=== PATIENT | female | born 1960 ===

== ENCOUNTER 2017-12-21 15:21 | Emergency (ER) | payer SELFPAY ==
[2017-12-21] MEDS ORDERED: Lidocaine 5% Patch TD STA (16:36)
[2017-12-21] MEDS ORDERED: Lidocaine 5% Patch TD ONE (16:49)
[2017-12-21 17:32] LABS: SQUAMOUS EPITHIAL 1 /hpf (0-5); URINE BACTERIA RARE (<OCC); URINE BILIRUBIN NEGATIVE (NEGATIVE); URINE BLOOD NEGATIVE (NEGATIVE); URINE CLARITY CLEAR (Clear); URINE COLOR STRAW (YELLOW); URINE GLUCOSE (UA) NEG (Normal); URINE LEUKOCYTE ESTERASE NEG Leu/uL (Negative); URINE PROTEIN NEGATIVE (NEGATIVE); URINE UROBILINOGEN 0.2-1.0 mg/dL (0.2-1.0)
--- NOTE | 2017-12-21 17:57 | ED PDOC ---
HPI: Back Time Seen by Provider: 12/21/17 15:58 Chief Complaint (Nursing): Back Pain Chief Complaint (Provider): Back pain History Per: Personnel Records Clerk ([phone] ) History/Exam Limitations: no limitations Onset/Duration Of Symptoms: Days (x3) Additional Complaint(s): Patient is a 57 y/o female with no significant past medical history who presents to the ED complaining of atraumatic right sided lower back pain, onset x3 days ago. Patient reports that the pain radiates down her right buttock but denies any radiation into her legs. Patient states that pain worsens when she walks; she is currently visiting from [facility] and states she has been walking a lot more than normally accustomed to. Patient has been taking OTC pain medications and using heat pack for pain management without relief. She denies trauma, incontinence, dysuria, hematuria, abdominal pain, calf pain, chest pain , shortness of breath or history of kidney stones. Past Medical History Reviewed: Historical Data, Nursing Documentation, Vital Signs Vital Signs: Last Vital Signs Temp 97.6 F 12/21/17 15:47 Pulse 71 12/21/17 15:47 Resp 20 12/21/17 15:47 BP 125/77 12/21/17 15:47 Pulse Ox 99 12/21/17 15:47 - Medical History PMH: No Chronic Diseases - Surgical History Surgical History: No Surg Hx - Family History Family History: States: Unknown Family Hx - Home Medications Home Medications: Ambulatory Orders Medication Instructions Recorded Cyclobenzaprine [Cyclobenzaprine 10 mg PO Q8 PRN #10 tab 12/21/17 HCl] Lidocaine 5% [Lidoderm] 1 ea TD DAILY PRN #10 patch 12/21/17 Naproxen [Naprosyn] 500 mg PO BID PRN #10 tab 12/21/17 - Allergies Allergies/Adverse Reactions: Allergies Allergy/AdvReac Type Severity Reaction Status Date / Time vitamin b12 Allergy RASH Uncoded 12/21/17 15:47 Review of Systems ROS Statement: Except As Marked, All Systems Reviewed And Found Negative Constitutional: Negative for: Fever Cardiovascular: Negative for: Chest Pain Respiratory: Negative for: Shortness of Breath Gastrointestinal: Negative for: Abdominal Pain Genitourinary Female: Negative for: Dysuria, Incontinence, Hematuria Musculoskeletal: Positive for: Back Pain (right sided lower) Physical Exam - Reviewed Nursing Documentation Reviewed: Yes Vital Signs Reviewed: Yes - Physical Exam Appears: Positive for: Non-toxic, No Acute Distress Head Exam: Positive for: ATRAUMATIC, NORMOCEPHALIC Skin: Positive for: Normal Color, Warm, Dry Eye Exam: Positive for: EOMI, Normal appearance, PERRL Cardiovascular/Chest: Positive for: Regular Rate, Rhythm. Negative for: Murmur Respiratory: Positive for: Normal Breath Sounds. Negative for: Respiratory Distress Gastrointestinal/Abdominal: Positive for: Normal Exam. Negative for: Tenderness Back: Positive for: Normal Inspection, Muscle Spasm (right sided paralumbar tenderness with muscle spasm), Other (positive straigh leg raise test at 30 degrees). Negative for: L CVA Tenderness, R CVA Tenderness, Vertebral Tenderness Neurologic/Psych: Positive for: Alert, Oriented (x3), Gait (steady unassisted). Negative for: Motor/Sensory Deficits - ECG O2 Sat by Pulse Oximetry: 99 (RA) Pulse Ox Interpretation: Normal Medical Decision Making Medical Decision Making: Time: 16:35 Initial Impression: Right sided lower back pain Initial Plan: --Flexeril 10 mg PO --Lidocaine 5% TD --Toradol 30 mg IM --RAD - LS spine AP/LAT --Urinalysis Time: 17:00 --Lumbar spine x-ray reveals no bony abnormalities Time: 17:52 --On reevaluation patient reports complete pain relief Scribe Attestation: Documented by Braulio Blake, acting as a scribe for Pk Reynolds PA-C Provider Scribe Attestation: All medical record entries made by the Scribe were at my direction and personally dictated by me. I have reviewed the chart and agree that the record accurately reflects my personal performance of the history, physical exam, medical decision making, and the department course for this patient. I have also personally directed, reviewed, and agree with the discharge instructions and disposition. Disposition - Clinical Impression Clinical Impression: Sciatica - [facility] [Outside] Disposition: Routine/Home Disposition Time: 17:52 Condition: IMPROVED Additional Instructions: JARAD JAMESON, thank you for letting us take care of you today. Your provider was Luis Cheung III, DO and you were treated for BACK PAIN. The emergency medical care you received today was directed at your acute symptoms. If you were prescribed any medication, please fill it and take as directed. It may take several days for your symptoms to resolve. Return to the Emergency Department if your symptoms worsen, do not improve, or if you have any other problems. Please contact your doctor or call one of the physicians/clinics you have been referred to that are listed on the Patient Visit Information form that is included in your discharge packet. Bring any paperwork you were given at discharge with you along with any medications you are taking to your follow up visit. Our treatment cannot replace ongoing medical care by a primary care provider outside of the emergency department. [facility] of your care today. If you had an X-Ray or CT scan: A Radiologist will review the ED reading if any change in treatment is needed we will contact you. If you had a blood, urine, or wound culture: It will take several days for the results, if any change in treatment is needed we will contact you. If you had an STI test: It will take 48 hours for the results. Please call after 1 week if you have not heard back. Prescriptions: Cyclobenzaprine [Cyclobenzaprine HCl] 10 mg PO Q8 PRN #10 tab PRN Reason: Muscle Spasm Lidocaine 5% [Lidoderm] 1 ea TD DAILY PRN #10 patch PRN Reason: Pain Naproxen [Naprosyn] 500 mg PO BID PRN #10 tab PRN Reason: Pain Instructions: Sciatica (DC), Sciatica Exercises Print Language: TAJIK
[2017-12-21 17:58] VITALS: BP 128/78; PULSE 78; RESP 18; TEMP 98
[2017-12-21 18:00] VITALS: O2SAT 99
--- NOTE | 2017-12-21 18:21 | RAD ---
Date of service: 12/21/2017 PROCEDURE: Radiographs of the Lumbar Spine. HISTORY: pain COMPARISON: No prior. FINDINGS: BONES: Normal alignment. No listhesis. No fracture. DISC SPACES: Unremarkable. OTHER FINDINGS: None. IMPRESSION: Unremarkable radiographs of the lumbar spine.
== END 2017-12-21 17:58 | disposition home or self-care (01) ==
LOC: H.ER 15:21
DX: M54.31 Sciatica, right side (principal)
CPT/HCPCS: 72100; 81003; 96372; 99283; J1885